=== PATIENT | female | born 1955 | race American Indian/Alaskan Native ===

== ENCOUNTER 2021-06-16 13:35 | Emergency (ER) | payer MEDICARE ==
[2021-06-16] MEDS ORDERED: LIDOCAINE 5% OINTMENT 35 GM TP ONE (14:34)
--- NOTE | 2021-06-16 14:40 | Emergency Department Report ---
ED General Adult HPI - General Chief complaint: Rectal Pain Stated complaint: HEMROIDS Time Seen by Provider: 06/16/21 14:14 Source: patient, EMS Mode of arrival: Stretcher Limitations: No Limitations - History of Present Illness Initial comments: Chief complaint rectal pain hemorrhoid. HPI: 66-year-old female who was recently diagnosed with rectal hemorrhoid outside hospital. Referred to [facility] by PCP. She was referred to a physician that is not a surgeon. Patient has severe pain in spite Toradol, tramadol, suppositories, lidocaine, Colace. -: Gradual, days(s) (5 days ago) Severity scale (0 -10): 3 Consistency: constant Worsens with: other (Defecation) ED Review of Systems ROS: Stated complaint: HEMROIDS Other details as noted in HPI Comment: All other systems reviewed and negative Constitutional: denies: fever Cardiovascular: denies: chest pain Gastrointestinal: diarrhea (Hemorrhoid occurred after several days of diarrhea). denies: abdominal pain, nausea, vomiting ED Past Medical Hx - Past Medical History Previous Medical History?: Yes ED Physical Exam - General Limitations: No Limitations General appearance: alert, in no apparent distress - Head Head exam: Present: atraumatic, normocephalic - Eye Eye exam: Present: normal appearance - GI/Abdominal GI/Abdominal exam: Present: soft, normal bowel sounds. Absent: distended, tenderness, guarding, rebound - Rectal Rectal exam: Present: normal rectal tone, hemorrhoids (Small 1 cm thrombosed hemorrhoid) - Extremities Exam Extremities exam: Present: normal inspection - Neurological Exam Neurological exam: Present: alert, oriented X3 - Psychiatric Psychiatric exam: Present: normal affect, normal mood - Skin Skin exam: Present: warm, dry, intact, normal color. Absent: rash ED Course Vital Signs 06/16/21 13:39 Temperature 98.5 F Pulse Rate 75 Respiratory 16 Rate Blood Pressure 130/75 [Left] O2 Sat by Pulse 100 Oximetry ED Medical Decision Making - Medical Decision Making Small thrombosed hemorrhoid: Patient received IM ketorolac, topical lidocaine. Recommended sitz bath's. Referred to general surgeon and GI specialist. Critical care attestation.: If time is entered above; I have spent that time in minutes in the direct care of this critically ill patient, excluding procedure time. ED Disposition Clinical Impression: Thrombosed external hemorrhoid Disposition: HOME / SELF CARE / HOMELESS Is pt being admited?: No Does the pt Need Aspirin: No Condition: Stable Instructions: Hemorrhoids, [id number] Referrals: ROLAN RILEY MD [Primary Care Provider] - 3-5 Days ZITA PATEL MD [Staff Physician] - 3-5 Days TISHA CAMPBELL MD [Staff Physician] - 3-5 Days
[2021-06-16 15:56] VITALS: BP 124/82
== END 2021-06-16 15:55 | disposition home or self-care (01) ==
LOC: ED 13:35
DX: K64.5 Perianal venous thrombosis (principal)
CPT/HCPCS: 99283